=== PATIENT | female | born 1950 | race Caucasian/White ===

== ENCOUNTER → 2020-10-06 | Outpatient (CLI) | payer MEDICARE, OTHER ==
[~2020-10-06] MED LIST: CATHETER FLUSH 10 ML SYR IV PRN; HOLD METFORMIN - RECEIVED CONTRAST 20 ML VIAL IV SCH; IOHEXOL 350 MG/ML 100 ML (OMNIPAQUE 350) VIAL IV ONE; NS 100 ML (IVPB) BAG IV ONE
[2020-10-06 07:37] LABS: CREATININE SERUM 1.11 MG/DL (0.60-1.30)
--- NOTE | 2020-10-06 09:28 | Diagnostic Imaging Report ---
EXAMINATION: CT chest with intravenous contrast. TECHNIQUE: Multiple contiguous axial images were obtained through the chest after the uneventful administration of intravenous contrast. All CT scans use one or more of the following dose optimizing techniques: automated exposure control, MA and/or KvP adjustment based on patient size and exam type or iterative reconstruction. HISTORY: Breast cancer, prior Covid-19. COMPARISON: None available. FINDINGS: There is no edema or pneumonia. No pleural effusion. No pneumothorax. No suspicious nodules. There is mosaic attenuation with the dark areas appearing abnormal consistent with small vessels or small airways disease. There is no axillary or supraclavicular lymphadenopathy. There is no mediastinal lymphadenopathy. 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 There has been coronary artery bypass grafting. Heart size is normal. There are severe coronary artery calcifications. No pericardial effusion. Aorta is normal in caliber. Limited views of the upper abdomen show changes of cholecystectomy. There are no suspicious osseous lesions. IMPRESSION: 1. Mosaic perfusion of the lungs consistent with small vessels or small airways disease. 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 Dictated by: Dictated on workstation # [id number]
== END ==
LOC: RAD 08:15
PROVIDERS: ATTEND Nurse Practitioner Family
DX: R91.8 Other nonspecific abnormal finding of lung field (principal); Z86.16 Personal history of COVID-19; Z85.3 Personal history of malignant neoplasm of breast
CPT/HCPCS: 36415; 71260; 82565; 84520

== ENCOUNTER → 2020-11-10 | Outpatient (CLI) | payer MEDICARE, OTHER ==
[~2020-11-10] MED LIST changes: -CATHETER FLUSH 10 ML SYR IV PRN; -HOLD METFORMIN - RECEIVED CONTRAST 20 ML VIAL IV SCH; -IOHEXOL 350 MG/ML 100 ML (OMNIPAQUE 350) VIAL IV ONE; -NS 100 ML (IVPB) BAG IV ONE; +RT-ALBUTEROL SULF 2.5 MG/3 ML PRE-MIX VIAL INH ONE
== END ==
LOC: RT 11:00
PROVIDERS: ATTEND Nurse Practitioner Family
DX: R91.8 Other nonspecific abnormal finding of lung field (principal)
CPT/HCPCS: 94060; 94726; 94729

== ENCOUNTER → 2020-11-10 | Outpatient (CLI) | payer MEDICARE, OTHER ==
[~2020-11-10] MED LIST changes: +CATHETER FLUSH 10 ML SYR IV PRN; +HOLD METFORMIN - RECEIVED CONTRAST 20 ML VIAL IV SCH; +IOHEXOL 350 MG/ML 100 ML (OMNIPAQUE 350) VIAL IV ONE; +NS 100 ML (IVPB) BAG IV ONE; -RT-ALBUTEROL SULF 2.5 MG/3 ML PRE-MIX VIAL INH ONE
[2020-11-10 08:28] LABS: CREATININE SERUM 1.17 MG/DL (0.60-1.30)
--- NOTE | 2020-11-10 09:26 | Diagnostic Imaging Report ---
PROCEDURE: CT angiography of the head and CT angiography of the neck with and without contrast. TECHNIQUE: Contiguous noncontrast images were obtained from the skull base through the vertex. After intravenous contrast administration, helical CT angiography of the neck was performed. Source data was reformatted into 3D MIP projections. Delayed post contrast acquisition was also obtained. Auto Exposure Controls were utilized during the CT exam to meet ALARA standards for radiation dose reduction. INDICATION: Carotid stenosis. COMPARISON: Correlation is limited to overlapped views obtained during a chest CT of 10/06/2020. FINDINGS: HEAD: The pre and delayed post contrast enhanced CT head shows no hemorrhage, hydrocephalus, edema, mass, mass effect, or evidence for an elevation of the intracranial pressures. There is no abnormal or suspicious parenchymal or meningeal enhancement and there is enhancement of the major dural venous sinuses. The orbits, sinuses, and calvarium are nonacute. CT ANGIO NECK: Severe calcified plaque at the aortic arch is unchanged from the prior exam. Calcified and noncalcified plaque at the innominate result in no significant stenosis. Predominately soft plaque at the takeoff of the left common carotid narrows the lumen by 30% or less. The bilateral subclavians are patent. Mixed soft and hard plaque result in a substantial stenosis of the proximal right common carotid. Owing to the density of the calcified plaque, it is difficult to precisely quantify luminal stenosis but it is likely at least 70% and may be greater. When correlated with the previous chest CT, this has not obviously changed. The right cervical vertebral is dominant and widely patent. The left is somewhat small but nonpathologic and nonfocal. Throughout the cervical common carotids, there is right greater than left scattered predominantly calcified plaque. There is severe calcified plaque at the carotid bulbs and bifurcations. The right bulb is narrowed by about 70-80% and the left by about 50-60%. Predominately calcified plaque extends through the bifurcation into the right greater than left proximal cervical internal carotids with the right narrowed by about 60%. The mid to distal thirds of the cervical internal carotids are widely patent. CT ANGIO HEAD: The intradural segments of the vertebral arteries are patent. The basilar is widely patent. The bilateral construction framer are patent with the left in origin off the anterior circulation. The intracranial ICAs show calcified plaque at their cavernous segments without hemodynamically significant stenosis. The bilateral A1 segments are patent. The ACOM(s) are identified and patent. The paired anterior cerebral arteries are patent and unremarkable. The bilateral middle cerebral arterial segments and primary branches are patent. There is no intracranial aneurysm, vascular malformation, intracranial thrombus, or large vessel occlusion. IMPRESSION: 1. Cervical greater than intracranial atherosclerotic plaque with hemodynamically significant stenoses at the proximal and distal right common carotid extending into the bulb and bifurcation and moderately involving the proximal right cervical internal carotid. 2. Dominant right vertebral. Nonpathological left vertebral. Mild intracranial non-stenosing calcified plaque. The CT angio head is otherwise unremarkable. Dictated by: Dictated on workstation # [id number]
== END ==
LOC: CARD 07:44
PROVIDERS: ATTEND Internal Medicine Cardiovascular Disease
DX: I08.0 Rheumatic disorders of both mitral and aortic valves (principal); I25.10 Atherosclerotic heart disease of native coronary artery without angina pectoris; I11.9 Hypertensive heart disease without heart failure; I65.23 Occlusion and stenosis of bilateral carotid arteries
CPT/HCPCS: 36415; 70496; 70498; 82565; 84520; 93306

== ENCOUNTER 2020-12-03 20:50 | Outpatient (CLI) | payer MEDICARE, OTHER | END 2020-12-04 06:50 | disposition home or self-care (01) | LOC: SLEEP 20:50 | PROVIDERS: ATTEND Nurse Practitioner Family | DX: G47.33 Obstructive sleep apnea (adult) (pediatric) (principal) | CPT/HCPCS: 95811 ==